=== PATIENT | male | born 1995 | race African-American/Black ===

== ENCOUNTER 2016-08-12 08:22 | Emergency (ER) | payer OTHER ==
[~2016-08-12] VITALS: Ht 182.9 cm; Wt 103.0 kg
[~2016-08-12 08:22] MED LIST: CYCLOBENZAPRINE5 M2 PO; NAPROSYN500 M1 PO
[2016-08-12 08:26] VITALS: BP 119/73
--- NOTE | 2016-08-12 08:39 | ED INFLUENZA/URI COMPLAINT ---
History of Present Illness General Chief Complaint: Upper Respiratory Sx/Fever Stated Complaint: "I THINK I HAVE THE FLU" Source: patient Exam Limitations: no limitations Vital Signs & Intake/Output Vital Signs & Intake/Output Vital Signs Date Time Temp Pulse Resp B/P Pulse O2 O2 Flow FiO2 Ox Delivery Rate 08/12 0826 97.9 65 20 119/73 97 Room Air Allergies Coded Allergies: NO KNOWN ALLERGIES (06/15/15) Reconcile Medications Cyclobenzaprine HCl 5 MG TABLET 1 TAB PO TIDPRN PRN muslce spasms Mometasone Furoate (Nasonex) 50 MCG SPRAY.PUMP 2 SPRAY NASB DAILY PRN cognestion Naproxen (Naprosyn) 500 MG TABLET 1 TAB PO BID PRN pain Triage Note: PT C/O HEADACHE X 2 DAYS, RUNNY NOSE AND STATES HE VOMITED X 1 LAST NIGHT. DENIES SICK CONTACTS OR FAMILY MEMBERS Triage Nurses Notes Reviewed? yes Onset: Gradual Duration: day(s): (2) Timing: remote history Severity: moderate Severity Numbers: 6 Prior Episodes/Possible Cause: occassional episodes No Modifying Factors: none HPI: Patient is a 21-year-old male presenting to the emergency department with chief complaint of upper respiratory congestion, runny nose, vomiting 1 episode last night. Denies any fevers or chills. No abdominal pain. Denies taking anything help with congestion. Reports that when he vomited sparsely phlegm. Positive postnasal drip. No sick contacts or recent travel. Requesting a work note for last night she stayed home. (TAMMIE HANSON) Past History Travel History Traveled to [place] past 21 day No Medical History Any Pertinent Medical History? 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 No (TAMMIE HANSON) Review of Systems Review of Systems Constitutional: Reports: no symptoms. Comments Review of systems: See HPI, All other systems negative. Constitutional, no chills fever or weight loss HEENT: No visual changes no sore throat Cardiovascular: No chest pain ,palpitation , orthopnea Skin, no jaundice no rashes Respiratory: No dyspnea cough sputum or hemoptysis GI: No nausea no diarrhea : No dysuria No hematuria Muscle skeletal: no back pain, no neck pain, Neurologic: No numbness no confusion Psych: No stress anxiety or depression,. Heme/endocrine: No bruising no bleeding no polyuria or polydipsia Immunology: No splenectomy or history of AIDS (TAMMIE HANSON) Physical Exam Physical Exam General Appearance: well developed/nourished, no apparent distress, alert, awake , comfortable Ears, Nose, Throat: nasal congestion, nasal drainage Comments: Well-developed well-nourished person in no acute distress HEENT: Pupils equally round and reactive to light and accommodation. Nose is atraumatic. External auditory canal and Tympanic membranes clear. Pharynx normal. No swelling or edema. Clear nasal discharge in bilateral nares. Neck: Supple, no lymphadenopathy, normal range of motion without pain or tenderness Back: Nontender, no CVA tenderness. Full range of motion Cardiovascular: Regular rate and rhythms no murmurs rubs or gallops, normal JVP Respiratory: Chest nontender. No respiratory distress.breath sounds clear to auscultation bilaterally Neuro: Alert oriented x3 Skin: No appreciable rash on exposed skin, skin is warm and dry. Psych: Mood and affect is normal, memory and judgment is normal. Core Measures Severe Sepsis Present: No Septic Shock Present: No (TAMMIE HANSON) Progress Differential Diagnosis: influenza, pneumonia, pharyngitis, sinusitis, upper respiratory infection Plan of Care: Likely viral upper respiratory infection. Patient will be treated symptomatically with Nasonex. Educated on increasing fluids. Will follow up with PCP. Patient nontoxic. Initial ED EKG: none (TAMMIE HANSON) Departure Departure Time of Disposition: 842 Disposition: HOME OR SELF CARE Condition: Stable Clinical Impression Primary Impression: Upper respiratory infection Qualifiers: URI type: unspecified URI Qualified Code: J06.9 - Acute upper respiratory infection, unspecified Ruled Out Impressions: Upper respiratory disease Referrals: PATIENT HAS NO PRIMARY CARE DR (PCP/Family) Additional Instructions: Follow-up with your primary care physician call to make an appointment. Increase fluids. Use Nasonex as prescribed. Return for worsening symptoms or concerns. Departure Forms: Customer Survey General Discharge Information RELEASE- WORK Prescriptions: Current Visit Scripts Mometasone Furoate (Nasonex) 2 SPRAY NASB DAILY PRN cognestion #1 INHAL (TAMMIE HANSON) PA/FIELD ARTILLERY RADAR OPERATOR Co-Sign Statement Statement: ED Attending supervision documentation- [] I saw and evaluated the patient. I have also reviewed all the pertinent lab results and diagnostic results. I agree with the findings and the plan of care as documented in the PA's/FIELD ARTILLERY RADAR OPERATOR's documentation. x I have reviewed the ED Record and agree with the PA's/FIELD ARTILLERY RADAR OPERATOR's documentation. [] Additions or exceptions (if any) to the PAs/FIELD ARTILLERY RADAR OPERATOR's note and plan are summarized below: [] (MARK MOONEY,KETTY)
[2016-08-12] MEDS ORDERED: NASONEX17 GM NASB (08:44)
== END 2016-08-12 08:48 ==
LOC: ERH 08:22
DX: J06.9 Acute upper respiratory infection, unspecified (principal)

== ENCOUNTER 2016-10-29 10:38 | Emergency (ER) | payer OTHER ==
[~2016-10-29] VITALS: Ht 180.3 cm; Wt 105.2 kg
[~2016-10-29 10:38] MED LIST changes: +NASONEX17 GM NASB
[2016-10-29 10:44] VITALS: BP 107/73
--- NOTE | 2016-10-29 11:13 | ED GENERAL ADULT ---
History of Present Illness General Chief Complaint: General Adult Stated Complaint: VOMITING X 1.5 WKS; R KNEE PAIN Source: patient Exam Limitations: no limitations Vital Signs & Intake/Output Vital Signs & Intake/Output Vital Signs Date Time Temp Pulse Resp B/P Pulse O2 O2 Flow FiO2 Ox Delivery Rate 10/29 1122 99 Room Air 10/29 1044 97.3 60 20 107/73 98 Room Air Allergies Coded Allergies: NO KNOWN ALLERGIES (06/15/15) Reconcile Medications Benzonatate (Tessalon Perle) 100 MG CAPSULE 1 CAP PO QPM COUGH Cyclobenzaprine HCl 5 MG TABLET 1 TAB PO TIDPRN PRN muslce spasms Mometasone Furoate (Nasonex) 50 MCG SPRAY.PUMP 2 SPRAY NASB DAILY PRN cognestion Naproxen (Naprosyn) 500 MG TABLET 1 TAB PO BID PRN pain Triage Note: PT STATES HE HAS BEEN VOMITING X 1.5 WEEKS AT WEIRD TIMES LIKE 0300 HRS. STATES IT STARTS WITH HIM COUGHING HARD THEN HE VOMITS FOOD STUFF. PT DENIES ABDOMINAL PAIN OR DIARRHEA. PT STATES HIS RIGHT KNEE IS PAINFUL AFTER EXERCISING OR STANDING IN ONE SPOT TOO LONG Triage Nurses Notes Reviewed? yes Onset: Abrupt Duration: gone now Timing: recent history Injury Environment: home Severity: moderate Severity Numbers: 5 HPI: Patient is a 21-year-old male with an unremarkable past medical history presents to emergency with 2 complaints. Patient states in the last 6 weeks she's been complaining of intermittent right knee pain that he notices after he works out. Patient denies any specific mechanism of injury and has not been taking any medications for his symptoms and denies any significant knee injuries or fractures or surgical intervention. Patient has normal steady gait currently and states he has no pain with ambulation. Patient also complains of a 10 day history of every other night all sleeping he has coughing episodes where the coughing then makes patient have 1 episode of nonbloody nonbilious emesis. Patient denies any fever chills, shortness of breath wheezing He states that the coughing only occurs at night. Denies any new residency or pets or SPECIFIC irritants Patient is able tolerate by mouth States he events have only occurred 3-4 times in total (MARK GIMENEZ,BARBARA) Past History Travel History Traveled to [place] past 21 day No Medical History Any Pertinent Medical History? 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 No (BARBARA PALOMO) Review of Systems Review of Systems Constitutional: Reports: no symptoms. EENTM: Reports: no symptoms. Respiratory: Reports: see HPI, cough. Cardiovascular: Reports: no symptoms. GI: Reports: see HPI. Genitourinary: Reports: no symptoms. Musculoskeletal: Reports: see HPI, joint pain. Skin: Reports: no symptoms. Neurological/Psychological: Reports: no symptoms. Hematologic/Endocrine: Reports: no symptoms. Immunologic/Allergic: Reports: no symptoms. All Other Systems: Reviewed and Negative (BARBARA PALOMO) Physical Exam Physical Exam General Appearance: no apparent distress, alert, comfortable Comments: Well-developed well-nourished person in no acute distress HEENT: Normal EENT exam, extraocular motion intact, no nystagmus. Pupils equally round and reactive to light and accommodation. Nose is atraumatic. External auditory canal and Tympanic membranes clear. Pharynx normal. No swelling or edema. Neck: Supple, no lymphadenopathy, normal range of motion without pain or tenderness Back: Nontender, no CVA tenderness. Cardiovascular: Regular rate and rhythms no murmurs rubs or gallops, normal JVP Respiratory: Chest nontender. No respiratory distress.breath sounds clear to auscultation bilaterally Abdomen: Soft, nontender nondistended, no appreciable organomegaly. Normal bowel sounds. No ascites Extremity: No edema, no calf tenderness to palpation, normal and equal pulses. Right knee normal inspection noted mild point tenderness to patellar tendon junction Pain noted with straight leg raise 5 out of 5 resisted range of motion No joint line tenderness 4 active range of motion negative valgus stress test negative varus stress test negative anterior drawer test negative posterior drawer test Mild pain noted with knee extension Neuro: Alert oriented x3, motor sensory normal, Skin: No appreciable rash on exposed skin, skin is warm and dry. Psych: Mood and affect is normal, memory and judgment is normal. Core Measures ACS in differential dx? No CVA/TIA Diagnosis: No Severe Sepsis Present: No Septic Shock Present: No (BARBARA PALOMO) Progress Differential Diagnoses I considered the following diagnoses in my evaluation of the patient: [ Bronchitis, upper respiratory infection, pneumonia, fracture, tendinitis, septic arthritis,] Plan of Care: Orders Procedure Date/time Status XRY-KNEE COMPLETE RIGHT 10/29 1055 Active Patient has normal steady gait patient does not require emergent x-rays for concerns of patellar tendinitis Patient has clear lungs auscultation and I advised patient to evaluate his residency where he is sleeping to find causation of his coughing episodes. Patient also was advised to establish a primary care doctor with [facility] practice. (BARBARA PALOMO) Initial ED EKG: none (BARBARA PALOMO) Departure Departure Disposition: HOME OR SELF CARE Condition: Stable Clinical Impression Primary Impression: Coughing Secondary Impressions: Patellar tendinitis, right knee, Vomiting Referrals: PATIENT HAS NO PRIMARY CARE DR (PCP/Family) Additional Instructions: As discussed begin icing the area of the right knee directly 20 minutes every 2 hours when painful and begin [id number] Motrin as directed 3 tablets of 200 mg equaling 600 mg every 8 hours for pain and inflammation. Begin the prescription of Tessalon Perles at night to suppress THE cough If symptoms worsen return to emergency room. Prescription is waiting a [facility] pharmacy. Please obtain a primary care doctor's appointment from the list of [facility] practice provided to an emergency room for further evaluation treatment. Departure Forms: Customer Survey General Discharge Information Prescriptions: Current Visit Scripts Benzonatate (Tessalon Perle) 1 CAP PO QPM #5 CAP (BARBARA PALOMO) PA/TELEVISION REPAIRMAN Co-Sign Statement Statement: ED Attending supervision documentation- [] I saw and evaluated the patient. I have also reviewed all the pertinent lab results and diagnostic results. I agree with the findings and the plan of care as documented in the PA's/TELEVISION REPAIRMAN's documentation. x I have reviewed the ED Record and agree with the PA's/TELEVISION REPAIRMAN's documentation. [] Additions or exceptions (if any) to the PAs/TELEVISION REPAIRMAN's note and plan are summarized below: [] (MARK MOONEY,KETTY) Critical Care Note Critical Care Note Critical Care Time: non-applicable (BARBARA PALOMO)
[2016-10-29] MEDS ORDERED: TESSALON PERLE100 M1 PO (11:22)
== END 2016-10-29 11:34 ==
LOC: ERH 10:38
DX: R11.10 Vomiting, unspecified (principal); M76.51 Patellar tendinitis, right knee; R05 Cough